=== PATIENT | female | born 1950 | race Caucasian/White ===

== ENCOUNTER 2016-12-19 10:25 | Outpatient (CLI) | payer OTHER ==
--- NOTE | 2016-12-19 11:57 | DIAGNOSTIC IMAGING REPORT ---
PROCEDURE: DEXA BONE DENSITY STUDY CLINICAL INDICATION: OSTEOPENIA OF SPINE COMPARISON: DEXA scan 08/06/2014. FINDINGS: LUMBAR SPINE: Bone mineral density 0.854, T-score -1.8, osteopenia (previously bone mineral density 0.825, T-score -2.0, 3.6% bone mineral density increase). LEFT HIP: Bone mineral density 0.829, T-score -0.9, normal (previously bone mineral density 0.827, T-score -0.9, 0.3% bone mineral density increase). LEFT FEMORAL NECK: Bone mineral density 0.741, T-score -1.0, normal (previously bone mineral density 0.725, T-score -1.1, 2.2% bone mineral density increase). (T score greater or equal to -1.0 to: NORMAL) (T score from -1.1 to -2.4: OSTEOPENIA) (T score ess than or equal to -2.5: OSTEOPOROSIS) IMPRESSION: 1. Lumbar spine osteopenia with 3.6% bone mineral density increase 2. Normal left hip bone mineral density with 2.2% femoral neck bone mineral density increase 3. 10-year fracture risk: Major osteoporotic fracture 13%, hip fracture 0.8%.
== END 2016-12-19 23:00 | disposition home or self-care (01) ==
LOC: XR SRH 10:25
DX: M85.88 Other specified disorders of bone density and structure, other site (principal)